=== PATIENT | male | born 1930 | race African-American/Black ===

== ENCOUNTER 2018-08-23 06:00 | Emergency (ER) | payer MEDICARE, OTHER ==
[~2018-08-23] VITALS: Ht 170.2 cm; Wt 89.0 kg
[~2018-08-23 06:00] MED LIST: ALLO300T2 PO; DUTA0.5C2 MT; FINA5TAB11 PO; METF-516 PO; MONT10TA24 PO; NATE120T PO; PRAV20TA57 PO; QUIN20TA30 PO; TAMS0.4C31 MT
[2018-08-23] MEDS ORDERED: HYDROCODONE/ACETAMINOPHEN 5/325MG TABLET PO ONE (06:45)
[2018-08-23 08:31] LABS: CLARITY URINE CLEAR (CLEAR); COLOR URINE YELLOW (YELLOW); KETONES URINE NEGATIVE (NEGATIVE); LEUKOCYTE ESTERASE URINE NEGATIVE (NEGATIVE); NITRITE URINE NEGATIVE (NEGATIVE); OCCULT BLOOD URINE TRACE (NEGATIVE); PH URINE 6.5 (4.5-8.0); PROTEIN URINE 1+ (NEGATIVE); SPECIFIC GRAVITY URINE 1.018 (1.005-1.030); UROBILINOGEN URINE 0.2 E.U./dL (0.2-1.0)
[2018-08-23 08:59] VITALS: BP 184/88
== END 2018-08-23 09:11 | disposition home or self-care (01) ==
LOC: ER 06:00
DX: K40.90 Unilateral inguinal hernia, without obstruction or gangrene, not specified as recurrent (principal); E11.9 Type 2 diabetes mellitus without complications; I10 Essential (primary) hypertension; Z98.890 Other specified postprocedural states; Z79.899 Other long term (current) drug therapy
CPT/HCPCS: 76857; 99284

== ENCOUNTER 2019-03-30 05:45 | Emergency (ER) | payer MEDICARE, OTHER ==
[~2019-03-30] VITALS: Ht 175.3 cm; Wt 82.0 kg
[2019-03-30 06:46] LABS: CHLORIDE 107 mEq/L (98-107)
[2019-03-30 06:53] LABS: BASOPHILS % 1.1 % (0.0-2.0); EOSINOPHILS % 1.6 % (0.0-5.0); HEMATOCRIT. 34.9 % (42.0-52.0); HEMOGLOBIN. 11.9 g/dL (14.0-18.0); LYMPHOCYTES % 31.4 % (20.0-50.0); MEAN CORPUSCULAR HEMOGLOBIN 31.1 pg (28.0-32.0); MEAN CORPUSCULAR VOLUME 91.4 fL (80.0-94.0); MEAN PLATELET VOLUME 9.6 fl (7.4-10.4); MONOCYTES % 8.9 % (2.0-8.0); PLATELET 139 x1000/uL (130-400); RED BLOOD CELL COUNT 3.82 mill/uL (4.7-6.1); RED CELL DISTRIBUTION WIDTH 14.7 % (11.6-14.6)
[2019-03-30 09:09] VITALS: BP 135/66
== END 2019-03-30 09:11 | disposition home or self-care (01) ==
LOC: ER 05:45
DX: R06.00 Dyspnea, unspecified (principal); M79.18 Myalgia, other site; R06.02 Shortness of breath; R07.89 Other chest pain; I10 Essential (primary) hypertension; E11.9 Type 2 diabetes mellitus without complications; N40.0 Benign prostatic hyperplasia without lower urinary tract symptoms; Z87.442 Personal history of urinary calculi; Z79.899 Other long term (current) drug therapy
CPT/HCPCS: 36415; 71045; 73030; 80053; 83880; 84484; 85025; 93005; 99284

== ENCOUNTER 2019-12-18 09:19 | Emergency (ER) | payer MEDICARE, OTHER ==
[~2019-12-18] VITALS: Ht 172.7 cm; Wt 83.9 kg
[~2019-12-18 09:19] MED LIST changes: -MONT10TA24 PO; +MONT10TA26 PO
[2019-12-18 09:52] LABS: BASOPHILS % 0.9 % (0.0-2.0); EOSINOPHILS % 2.6 % (0.0-5.0); HEMATOCRIT. 37.1 % (42.0-52.0); HEMOGLOBIN. 12.3 g/dL (14.0-18.0); LYMPHOCYTES % 26.1 % (20.0-50.0); MEAN CORPUSCULAR HEMOGLOBIN 30.1 pg (28.0-32.0); MEAN CORPUSCULAR VOLUME 90.6 fL (80.0-94.0); MONOCYTES % 9.8 % (2.0-8.0); NEUTROPHILS % 60.6 % (40.0-76.0); PLATELET 132 x1000/uL (130-400); RED CELL DISTRIBUTION WIDTH 15.3 % (11.6-14.6)
[2019-12-18 09:58] LABS: CHLORIDE 109 mEq/L (98-107)
[2019-12-18 10:05] LABS: INR 1.1; PROTHROMBIN TIME 11.4 sec (9.6-11.0)
[2019-12-18] MEDS ORDERED: LIDOCAINE HCL/EPINEPHRINE 1%-EPI 1:100,000 20 ML VIAL INFIL ONE (11:00)
[2019-12-18] MEDS ORDERED: TETANUS, DIPHTHERIA, PERTUSSIS VAC/PF 0.5ML (>7YR OLD) IM ONE (11:00)
[2019-12-18] MEDS ORDERED: LIDOCAINE 1%/EPI 1:100,000 10 ML VIAL IJ NR (11:15)
[2019-12-18 11:58] VITALS: BP 154/56
== END 2019-12-18 12:01 | disposition home or self-care (01) ==
LOC: ER 09:19
DX: S01.111A Laceration without foreign body of right eyelid and periocular area, initial encounter (principal); G93.89 Other specified disorders of brain; W01.190A Fall on same level from slipping, tripping and stumbling with subsequent striking against furniture, initial encounter; Y93.E9 Activity, other interior property and clothing maintenance; Y92.018 Other place in single-family (private) house as the place of occurrence of the external cause; I10 Essential (primary) hypertension; E11.9 Type 2 diabetes mellitus without complications; N40.0 Benign prostatic hyperplasia without lower urinary tract symptoms; Z79.899 Other long term (current) drug therapy; Z79.84 Long term (current) use of oral hypoglycemic drugs; Z23 Encounter for immunization
CPT/HCPCS: 12011; 36415; 70450; 72125; 80053; 85025; 85610; 90471; 90715; 93005; 99285; J3490

== ENCOUNTER 2020-11-04 15:35 | Inpatient (IN) | payer MEDICARE, OTHER ==
[~2020-11-04] VITALS: Ht 177.8 cm; Wt 97.1 kg
[~2020-11-04 15:35] MED LIST changes: -METF-516 PO; +METF-818 PO; -MONT10TA26 PO; +MONT10TA32 PO
[2020-11-04 18:22] LABS: CHLORIDE 107 mEq/L (98-107)
[2020-11-04 18:26] LABS: ETHANOL BLOOD < 10 mg/dL
[2020-11-04] MEDS ORDERED: CEFTRIAXONE 2 G PREMIX 50 ML IV ONE (18:45)
[2020-11-04 19:50] LABS: BASOPHILS % 0.3 % (0.0-2.0); EOSINOPHILS % 1.6 % (0.0-5.0); HEMATOCRIT. 36.8 % (42.0-52.0); HEMOGLOBIN. 12.7 g/dL (14.0-18.0); LYMPHOCYTES % 16.4 % (20.0-50.0); MEAN CORPUSCULAR HEMOGLOBIN 32.4 pg (28.0-32.0); MEAN CORPUSCULAR VOLUME 93.8 fL (80.0-94.0); MEAN PLATELET VOLUME 8.8 fl (7.4-10.4); MONOCYTES % 6.3 % (2.0-8.0); NEUTROPHILS % 75.4 % (40.0-76.0); PLATELET 95 x1000/uL (130-400); RED BLOOD CELL COUNT 3.92 mill/uL (4.7-6.1); RED CELL DISTRIBUTION WIDTH 19.6 % (11.6-14.6)
[2020-11-04 19:50] LABS: CLARITY URINE CLOUDY (CLEAR); COLOR URINE DARK YELLOW (YELLOW); KETONES URINE TRACE (NEGATIVE); LEUKOCYTE ESTERASE URINE TRACE (NEGATIVE); NITRITE URINE POSITIVE (NEGATIVE); OCCULT BLOOD URINE NEGATIVE (NEGATIVE); PROTEIN URINE 1+ (NEGATIVE); SPECIFIC GRAVITY URINE 1.015 (1.005-1.030)
[2020-11-04 20:07] LABS: *AMPHETAMINES SCREEN URINE NEGATIVE (NEGATIVE); *BARBITURATES SCREEN URINE NEGATIVE (NEGATIVE); *BENZODIAZEPINES SCREEN URINE NEGATIVE (NEGATIVE); *COCAINE SCREEN URINE NEGATIVE (NEGATIVE); CANNABINOID URINE SCREEN NEGATIVE (NEGATIVE)
[2020-11-04 20:08] LABS: METHADONE URINE SCREEN NEGATIVE (NEGATIVE); OPIATES URINE SCREEN NEGATIVE (NEGATIVE); PHENCYCLIDINE URINE SCREEN NEGATIVE (NEGATIVE)
[2020-11-04] MEDS ORDERED: ZOLPIDEM TARTRATE 5MG TABLET PO PRN (21:00)
[2020-11-04] MEDS: INSULIN LISPRO 100 UNITS/ML SUBCUT SCH (21:00)
[2020-11-04] MEDS ORDERED: SODIUM CHLORIDE 0.9% 1000ML BAG (SEPSIS BOLUS) IV ONE (21:00)
[2020-11-04] MEDS ORDERED: TRAMADOL 50MG TABLET PO PRN (21:00)
[2020-11-04] MEDS ORDERED: NITROGLYCERIN 0.4MG TABLET SL SL PRN (21:00)
[2020-11-04] MEDS ORDERED: ACETAMINOPHEN 325MG TABLET PO PRN ×2 (21:00)
[2020-11-04] MEDS ORDERED: LEVOFLOXACIN 500MG PREMIX 100 ML IV NR (21:00)
[2020-11-04] MEDS ORDERED: GUAIFENESIN 200MG/10ML SUGAR FREE UDC PO PRN (21:00)
[2020-11-04] MEDS ORDERED: CLONIDINE 0.1MG TABLET PO PRN (21:00)
[2020-11-04] MEDS ORDERED: DEXTROSE 50% WATER 50ML SYRINGE IV PRN (21:00)
[2020-11-04] MEDS ORDERED: DOCUSATE SODIUM 100MG CAPSULE PO PRN (21:00)
[2020-11-04] MEDS ORDERED: MAGNESIUM/ALUMINUM HYDROXIDE/SIMETHICONE 30ML UDC PO PRN (21:00)
[2020-11-04] MEDS ORDERED: IPRATROPIUM/ALBUTEROL 0.5-3(2.5)MG/3ML NEB NEB PRN (21:00)
[2020-11-04] MEDS ORDERED: ONDANSETRON HCL 4MG/2ML INJ IV PRN (21:00)
[2020-11-04] MEDS: BLOOD SUGAR DIAGNOSTIC STRIP TEST SCH (21:42)
[2020-11-04 21:43] LABS: T4 FREE 1.26 ng/dL (0.76-1.46)
[2020-11-04 21:55] LABS: FERRITIN 316 ng/mL (22-322)
[2020-11-04 22:50] LABS: VITAMIN B12 SERUM > 2000.0 pg/mL (211-911)
[2020-11-04] MEDS: FAMOTIDINE 20MG TABLET PO SCH (23:33)
[2020-11-04] MEDS: ASCORBIC ACID 500 MG TABLET PO SCH (23:33)
[2020-11-04] MEDS: METOPROLOL TARTRATE 25MG TABLET PO SCH (23:40)
[2020-11-05 00:10] LABS: CREATINE KINASE 28 IU/L (39-308)
[2020-11-05 00:11] LABS: CREATINE KINASE MB FRACTION < 1.0 ng/mL (0.5-3.6)
[2020-11-05] MEDS: ENOXAPARIN 30MG/0.3ML SYR SUBCUT SCH ×2 (02:24→21:00)
[2020-11-05 05:09] LABS: BASOPHILS % 0.4 % (0.0-2.0); HEMOGLOBIN. 12.5 g/dL (14.0-18.0); LYMPHOCYTES % 16.9 % (20.0-50.0); MEAN CORPUSCULAR HEMOGLOBIN 32.6 pg (28.0-32.0); MEAN CORPUSCULAR VOLUME 96.4 fL (80.0-94.0); MEAN PLATELET VOLUME 8.6 fl (7.4-10.4); MONOCYTES % 7.1 % (2.0-8.0); NEUTROPHILS % 74.6 % (40.0-76.0); PLATELET 81 x1000/uL (130-400); RED BLOOD CELL COUNT 3.84 mill/uL (4.7-6.1); RED CELL DISTRIBUTION WIDTH 19.9 % (11.6-14.6)
[2020-11-05 05:17] LABS: CHLORIDE 110 mEq/L (98-107)
[2020-11-05 05:23] LABS: PHOSPHORUS 2.6 mg/dL (2.5-4.9)
[2020-11-05 05:25] LABS: CREATINE KINASE 29 IU/L (39-308)
[2020-11-05 05:28] LABS: CREATINE KINASE MB FRACTION < 1.0 ng/mL (0.5-3.6)
[2020-11-05] MEDS: BLOOD SUGAR DIAGNOSTIC STRIP TEST SCH ×4 (06:44→21:01)
[2020-11-05] MEDS: INSULIN LISPRO 100 UNITS/ML SUBCUT SCH ×4 (07:30→21:00)
[2020-11-05] MEDS: ASCORBIC ACID 500 MG TABLET PO SCH ×2 (10:18→21:05)
[2020-11-05] MEDS: CHOLECALCIFEROL (D3) 1000 UNIT TABLET PO SCH (10:19)
[2020-11-05] MEDS: ZINC SULFATE 220 MG ( 50 ) CAPSULE PO SCH (10:19)
[2020-11-05] MEDS: ASPIRIN 325MG EC TABLET PO SCH (10:19)
[2020-11-05] MEDS: METOPROLOL TARTRATE 25MG TABLET PO SCH ×2 (10:20→21:06)
[2020-11-05] MEDS ORDERED: CEFTRIAXONE SODIUM 1 G/VIAL ONE (14:45)
[2020-11-05] MEDS: CEFTRIAXONE 1,000 MG in DEXTROSE 5% WATER 50 ML IV SCH (15:42)
[2020-11-05 20:00] VITALS: BP_SYST 138; BP_SYST 143; BP_DIAS 56; BP_DIAS 86
[2020-11-05] MEDS: FAMOTIDINE 20MG TABLET PO SCH (21:05)
[2020-11-05] MEDS: LEVOFLOXACIN 250MG PREMIX 50 ML IV SCH (22:21)
[2020-11-06] VITALS: BP 126/56
[2020-11-06 04:00] VITALS: BP 118/55
[2020-11-06] MEDS: BLOOD SUGAR DIAGNOSTIC STRIP TEST SCH ×4 (05:50→21:00)
[2020-11-06] MEDS: INSULIN LISPRO 100 UNITS/ML SUBCUT SCH ×4 (06:53→21:00)
[2020-11-06 08:00] VITALS: BP 117/62
[2020-11-06] MEDS ORDERED: DEXTROSE 50% WATER 50ML SYRINGE IV ONE (08:00)
[2020-11-06] MEDS: ZINC SULFATE 220 MG ( 50 ) CAPSULE PO SCH (09:15)
[2020-11-06] MEDS: ASCORBIC ACID 500 MG TABLET PO SCH ×3 (09:15→21:59)
[2020-11-06] MEDS: ASPIRIN 325MG EC TABLET PO SCH (09:15)
[2020-11-06] MEDS: METOPROLOL TARTRATE 25MG TABLET PO SCH ×3 (09:15→21:59)
[2020-11-06] MEDS: CHOLECALCIFEROL (D3) 1000 UNIT TABLET PO SCH (09:15)
[2020-11-06 12:00] VITALS: BP 129/63
[2020-11-06] MEDS: CEFTRIAXONE 1,000 MG in DEXTROSE 5% WATER 50 ML IV SCH (13:46)
[2020-11-06 16:00] VITALS: BP 134/55
[2020-11-06 20:00] VITALS: BP 126/70
[2020-11-06] MEDS: FAMOTIDINE 20MG TABLET PO SCH ×2 (21:00→22:21)
[2020-11-06] MEDS: ENOXAPARIN 30MG/0.3ML SYR SUBCUT SCH (21:59)
[2020-11-07] VITALS: BP 124/52
[2020-11-07] MEDS: LEVOFLOXACIN 250MG PREMIX 50 ML IV SCH ×2 (00:07→21:58)
[2020-11-07 04:00] VITALS: BP 146/74
[2020-11-07] MEDS: BLOOD SUGAR DIAGNOSTIC STRIP TEST SCH ×4 (06:40→21:59)
[2020-11-07] MEDS: INSULIN LISPRO 100 UNITS/ML SUBCUT SCH ×4 (07:10→21:00)
[2020-11-07 08:00] VITALS: BP 145/62
[2020-11-07] MEDS: ASCORBIC ACID 500 MG TABLET PO SCH ×2 (09:02→21:00)
[2020-11-07] MEDS: CHOLECALCIFEROL (D3) 1000 UNIT TABLET PO SCH (09:02)
[2020-11-07] MEDS: ZINC SULFATE 220 MG ( 50 ) CAPSULE PO SCH (09:02)
[2020-11-07] MEDS: ASPIRIN 325MG EC TABLET PO SCH (09:02)
[2020-11-07] MEDS: METOPROLOL TARTRATE 25MG TABLET PO SCH ×2 (09:04→21:00)
[2020-11-07] MEDS: DEXT 5%/0.9% NACL 1,000 ML IV SCH ×2 (10:40→21:58)
[2020-11-07 12:00] VITALS: BP 107/44
[2020-11-07] MEDS: CEFTRIAXONE 1,000 MG in DEXTROSE 5% WATER 50 ML IV SCH (13:48)
[2020-11-07 16:30] VITALS: BP 147/63
[2020-11-07 20:00] VITALS: BP 107/68
[2020-11-07] MEDS: FAMOTIDINE 20MG TABLET PO SCH (21:00)
[2020-11-07] MEDS: ENOXAPARIN 30MG/0.3ML SYR SUBCUT SCH (22:05)
[2020-11-08] VITALS: BP 125/60
[2020-11-08 04:00] VITALS: BP 137/43
[2020-11-08] MEDS: INSULIN LISPRO 100 UNITS/ML SUBCUT SCH ×4 (07:10→22:49)
[2020-11-08] MEDS: BLOOD SUGAR DIAGNOSTIC STRIP TEST SCH ×4 (07:58→21:00)
[2020-11-08 08:00] VITALS: BP 140/58
[2020-11-08] MEDS: CHOLECALCIFEROL (D3) 1000 UNIT TABLET PO SCH (09:00)
[2020-11-08] MEDS: ASPIRIN 325MG EC TABLET PO SCH (09:00)
[2020-11-08] MEDS: ZINC SULFATE 220 MG ( 50 ) CAPSULE PO SCH (09:00)
[2020-11-08] MEDS: ASCORBIC ACID 500 MG TABLET PO SCH ×2 (09:00→20:45)
[2020-11-08] MEDS: METOPROLOL TARTRATE 25MG TABLET PO SCH ×2 (09:00→20:46)
[2020-11-08] MEDS ORDERED: BISACODYL 10MG SUPP PR PRN (10:30)
[2020-11-08 12:00] VITALS: BP 151/71
[2020-11-08] MEDS: LACTULOSE 20G/30ML UDC PO SCH ×2 (13:01→20:45)
[2020-11-08 16:00] VITALS: BP 135/52
[2020-11-08] MEDS: DEXT 5%/0.9% NACL 1,000 ML IV SCH ×2 (16:15→17:49)
[2020-11-08] MEDS: CEFTRIAXONE 1,000 MG in DEXTROSE 5% WATER 50 ML IV SCH (17:48)
[2020-11-08 20:00] VITALS: BP 160/75
[2020-11-08] MEDS: ENOXAPARIN 30MG/0.3ML SYR SUBCUT SCH (20:46)
[2020-11-08] MEDS: FAMOTIDINE 20MG TABLET PO SCH (20:46)
[2020-11-08] MEDS: LEVOFLOXACIN 250MG PREMIX 50 ML IV SCH (22:49)
[2020-11-09] VITALS (7 sets, daily range): BP systolic 135–154; BP diastolic 64–78
[2020-11-09] MEDS: DEXT 5%/0.9% NACL 1,000 ML IV SCH ×3 (06:42→22:21)
[2020-11-09] MEDS: LACTULOSE 20G/30ML UDC PO SCH ×3 (06:42→22:20)
[2020-11-09] MEDS: BLOOD SUGAR DIAGNOSTIC STRIP TEST SCH ×4 (06:42→21:00)
[2020-11-09] MEDS: INSULIN LISPRO 100 UNITS/ML SUBCUT SCH ×4 (06:47→21:00)
[2020-11-09] MEDS: CHOLECALCIFEROL (D3) 1000 UNIT TABLET PO SCH (08:32)
[2020-11-09] MEDS: ASPIRIN 325MG EC TABLET PO SCH (08:32)
[2020-11-09] MEDS: ZINC SULFATE 220 MG ( 50 ) CAPSULE PO SCH (08:32)
[2020-11-09] MEDS: ASCORBIC ACID 500 MG TABLET PO SCH ×2 (08:32→22:19)
[2020-11-09] MEDS: METOPROLOL TARTRATE 25MG TABLET PO SCH ×2 (08:40→22:18)
[2020-11-09] MEDS: CEFTRIAXONE 1,000 MG in DEXTROSE 5% WATER 50 ML IV SCH (13:30)
[2020-11-09] MEDS: ENOXAPARIN 30MG/0.3ML SYR SUBCUT SCH (21:00)
[2020-11-09] MEDS: FAMOTIDINE 20MG TABLET PO SCH (22:19)
[2020-11-10] VITALS: BP 135/57
[2020-11-10 04:00] VITALS: BP 125/59
[2020-11-10] MEDS: LACTULOSE 20G/30ML UDC PO SCH ×3 (06:00→22:00)
[2020-11-10] MEDS: INSULIN LISPRO 100 UNITS/ML SUBCUT SCH ×4 (06:17→21:00)
[2020-11-10] MEDS: BLOOD SUGAR DIAGNOSTIC STRIP TEST SCH ×4 (06:17→21:00)
[2020-11-10] MEDS: DEXT 5%/0.9% NACL 1,000 ML IV SCH ×2 (06:17→18:03)
[2020-11-10 08:00] VITALS: BP 134/50
[2020-11-10] MEDS: ASPIRIN 325MG EC TABLET PO SCH (09:00)
[2020-11-10] MEDS: METOPROLOL TARTRATE 25MG TABLET PO SCH ×2 (09:22→23:02)
[2020-11-10] MEDS: CHOLECALCIFEROL (D3) 1000 UNIT TABLET PO SCH (09:22)
[2020-11-10] MEDS: ASCORBIC ACID 500 MG TABLET PO SCH ×2 (09:22→23:01)
[2020-11-10] MEDS: ZINC SULFATE 220 MG ( 50 ) CAPSULE PO SCH (09:22)
[2020-11-10] MEDS ORDERED: MEROPENEM 1,000 MG in SODIUM CHLORIDE 0.9% 100 ML IV SCH (10:15)
[2020-11-10 12:00] VITALS: BP 127/54
[2020-11-10] MEDS: MEROPENEM 1,000 MG in SODIUM CHLORIDE 0.9% 100 ML IV SCH (12:47)
[2020-11-10] MEDS ORDERED: METHYLPREDNISOLONE SOD SUCC 125 MG/2 ML VIAL IV SCH (14:00)
[2020-11-10 16:00] VITALS: BP 106/45
[2020-11-10 16:03] LABS: INR 1.9; PROTHROMBIN TIME 19.8 sec (9.6-11.0)
[2020-11-10 16:19] LABS: CARCINO EMBRYONIC ANTIGEN 1.8 ng/ml; PROSTRATE SPECIFIC AG TOTAL 2.73 ng/mL (0.0-4.0)
[2020-11-10] MEDS: METHYLPREDNISOLONE SOD SUCC 125 MG/2 ML VIAL IV SCH ×2 (16:53→23:08)
[2020-11-10 16:59] LABS: BASOPHILS % 0.5 % (0.0-2.0); EOSINOPHILS % 0.3 % (0.0-5.0); HEMOGLOBIN. 12.2 g/dL (14.0-18.0); LYMPHOCYTES % 16.1 % (20.0-50.0); MEAN CORPUSCULAR HEMOGLOBIN 32.8 pg (28.0-32.0); MEAN CORPUSCULAR VOLUME 94.3 fL (80.0-94.0); MONOCYTES % 3.6 % (2.0-8.0); NEUTROPHILS % 79.5 % (40.0-76.0); RED BLOOD CELL COUNT 3.71 mill/uL (4.7-6.1); RED CELL DISTRIBUTION WIDTH 20.2 % (11.6-14.6)
[2020-11-10 18:03] LABS: MEAN PLATELET VOLUME 9.2 fl (7.4-10.4); PLATELET 56 x1000/uL (130-400)
[2020-11-10 20:00] VITALS: BP 129/33
[2020-11-10] MEDS: ENOXAPARIN 30MG/0.3ML SYR SUBCUT SCH (21:00)
[2020-11-10] MEDS: FAMOTIDINE 20MG TABLET PO SCH (23:01)
[2020-11-11] VITALS: BP 139/55
[2020-11-11 04:00] VITALS: BP 126/48
[2020-11-11] MEDS: LACTULOSE 20G/30ML UDC PO SCH ×2 (06:00→14:00)
[2020-11-11] MEDS: BLOOD SUGAR DIAGNOSTIC STRIP TEST SCH ×4 (06:40→21:00)
[2020-11-11] MEDS: INSULIN LISPRO 100 UNITS/ML SUBCUT SCH ×4 (07:10→21:00)
[2020-11-11] MEDS: MEROPENEM 1,000 MG in SODIUM CHLORIDE 0.9% 100 ML IV SCH ×2 (07:41→11:59)
[2020-11-11] MEDS: DEXT 5%/0.9% NACL 1,000 ML IV SCH ×2 (07:41→14:00)
[2020-11-11] MEDS: METHYLPREDNISOLONE SOD SUCC 125 MG/2 ML VIAL IV SCH ×2 (07:42→14:00)
[2020-11-11 08:00] VITALS: BP 138/81
[2020-11-11] MEDS: ASCORBIC ACID 500 MG TABLET PO SCH (11:25)
[2020-11-11] MEDS: METOPROLOL TARTRATE 25MG TABLET PO SCH (11:25)
[2020-11-11] MEDS: CHOLECALCIFEROL (D3) 1000 UNIT TABLET PO SCH (11:25)
[2020-11-11] MEDS: ZINC SULFATE 220 MG ( 50 ) CAPSULE PO SCH (11:25)
[2020-11-11 12:00] VITALS: BP 128/62
[2020-11-11 16:00] VITALS: BP 154/73
[2020-11-11 20:00] VITALS: BP 110/62
[2020-11-11] MEDS: ENOXAPARIN 30MG/0.3ML SYR SUBCUT SCH (21:00)
[2020-11-12] VITALS: BP 145/58
[2020-11-12] MEDS: LACTULOSE 20G/30ML UDC PO SCH ×4 (00:24→22:33)
[2020-11-12] MEDS: FAMOTIDINE 20MG TABLET PO SCH ×2 (00:24→22:33)
[2020-11-12] MEDS: MEROPENEM 1,000 MG in SODIUM CHLORIDE 0.9% 100 ML IV SCH ×2 (00:24→12:03)
[2020-11-12] MEDS: METOPROLOL TARTRATE 25MG TABLET PO SCH ×3 (00:24→21:00)
[2020-11-12] MEDS: ASCORBIC ACID 500 MG TABLET PO SCH ×3 (00:25→21:00)
[2020-11-12] MEDS: METHYLPREDNISOLONE SOD SUCC 125 MG/2 ML VIAL IV SCH ×4 (00:25→22:33)
[2020-11-12] MEDS: DEXT 5%/0.9% NACL 1,000 ML IV SCH ×3 (00:39→21:30)
[2020-11-12 04:00] VITALS: BP 125/58
[2020-11-12] MEDS: BLOOD SUGAR DIAGNOSTIC STRIP TEST SCH ×4 (05:45→21:30)
[2020-11-12] MEDS: INSULIN LISPRO 100 UNITS/ML SUBCUT SCH ×4 (05:45→21:00)
[2020-11-12 08:00] VITALS: BP 146/68
[2020-11-12 08:29] LABS: HEMATOCRIT 36.6 % (42.0-52.0); HEMOGLOBIN 12.1 g/dL (14.0-18.0); MEAN CORPUSCULAR HEMOGLOBIN 31.8 pg (28.0-32.0); MEAN CORPUSCULAR VOLUME 95.9 fL (80.0-94.0); RED BLOOD CELL COUNT 3.82 mill/uL (4.7-6.1)
[2020-11-12] MEDS: CHOLECALCIFEROL (D3) 1000 UNIT TABLET PO SCH (09:15)
[2020-11-12] MEDS: ZINC SULFATE 220 MG ( 50 ) CAPSULE PO SCH (09:16)
[2020-11-12] MEDS ORDERED: POTASSIUM CHLORIDE 20MEQ TABLET SR PO NR (15:45)
[2020-11-12] MEDS ORDERED: POTASSIUM CHLORIDE INJ 40 MEQ in DEXT 5% WATER 250 ML IV NR (17:00)
[2020-11-12 20:00] VITALS: BP 117/81
[2020-11-13] VITALS (8 sets, daily range): BP systolic 94–166; BP diastolic 53–82
[2020-11-13] MEDS: MEROPENEM 1,000 MG in SODIUM CHLORIDE 0.9% 100 ML IV SCH ×3 (01:06→23:11)
[2020-11-13] MEDS: BLOOD SUGAR DIAGNOSTIC STRIP TEST SCH ×4 (05:59→20:50)
[2020-11-13] MEDS: DEXT 5%/0.9% NACL 1,000 ML IV SCH ×3 (06:00→19:40)
[2020-11-13] MEDS: LACTULOSE 20G/30ML UDC PO SCH ×3 (06:00→22:00)
[2020-11-13] MEDS: INSULIN LISPRO 100 UNITS/ML SUBCUT SCH ×4 (06:12→20:50)
[2020-11-13] MEDS: METHYLPREDNISOLONE SOD SUCC 125 MG/2 ML VIAL IV SCH ×3 (06:13→22:56)
[2020-11-13 07:49] LABS: PROTHROMBIN TIME 20.4 sec (9.6-11.0)
[2020-11-13 07:51] LABS: HEMATOCRIT. 38.9 % (42.0-52.0); HEMOGLOBIN. 13.2 g/dL (14.0-18.0); MEAN CORPUSCULAR HEMOGLOBIN 32.1 pg (28.0-32.0); MEAN CORPUSCULAR VOLUME 94.2 fL (80.0-94.0); MEAN PLATELET VOLUME 9.8 fl (7.4-10.4); RED BLOOD CELL COUNT 4.12 mill/uL (4.7-6.1); RED CELL DISTRIBUTION WIDTH 20.6 % (11.6-14.6)
[2020-11-13 07:58] LABS: CHLORIDE 122 mEq/L (98-107)
[2020-11-13 08:00] LABS: PLATELET 40 x1000/uL (130-400)
[2020-11-13] MEDS: CHOLECALCIFEROL (D3) 1000 UNIT TABLET PO SCH ×2 (08:49→09:00)
[2020-11-13] MEDS: ZINC SULFATE 220 MG ( 50 ) CAPSULE PO SCH ×2 (08:49→09:00)
[2020-11-13] MEDS: ASCORBIC ACID 500 MG TABLET PO SCH ×3 (08:49→20:49)
[2020-11-13] MEDS: METOPROLOL TARTRATE 25MG TABLET PO SCH ×3 (08:50→20:49)
[2020-11-13] MEDS: POTASSIUM CHLORIDE 20MEQ/PACKET PO NR ×2 (09:30→10:29)
[2020-11-13] MEDS ORDERED: KCL 20MEQ/100ML PREMIX 100 ML IV NR (13:00)
[2020-11-13 14:36] LABS: PLATELET 50 x1000/uL (130-400)
[2020-11-13 16:56] LABS: PLATELET ESTIMATE MARKEDLY DECREASED
[2020-11-13] MEDS: FAMOTIDINE 20MG TABLET PO SCH (20:49)
[2020-11-14] VITALS (7 sets, daily range): BP systolic 92–150; BP diastolic 45–87
[2020-11-14] MEDS: METHYLPREDNISOLONE SOD SUCC 125 MG/2 ML VIAL IV SCH ×3 (05:13→21:48)
[2020-11-14] MEDS: LACTULOSE 20G/30ML UDC PO SCH ×3 (06:00→21:59)
[2020-11-14] MEDS: BLOOD SUGAR DIAGNOSTIC STRIP TEST SCH ×4 (06:03→21:49)
[2020-11-14] MEDS: INSULIN LISPRO 100 UNITS/ML SUBCUT SCH ×4 (06:03→21:49)
[2020-11-14] MEDS: DEXT 5%/0.9% NACL 1,000 ML IV SCH ×2 (06:36→19:20)
[2020-11-14] MEDS: ZINC SULFATE 220 MG ( 50 ) CAPSULE PO SCH (09:00)
[2020-11-14] MEDS: METOPROLOL TARTRATE 25MG TABLET PO SCH ×2 (09:00→21:59)
[2020-11-14] MEDS: ASCORBIC ACID 500 MG TABLET PO SCH ×2 (09:00→21:00)
[2020-11-14] MEDS: CHOLECALCIFEROL (D3) 1000 UNIT TABLET PO SCH (09:00)
[2020-11-14] MEDS: MEROPENEM 1,000 MG in SODIUM CHLORIDE 0.9% 100 ML IV SCH ×2 (12:24→23:00)
[2020-11-14] MEDS: FAMOTIDINE 20MG TABLET PO SCH (21:00)
[2020-11-15] VITALS: BP 120/72
[2020-11-15 04:00] VITALS: BP 124/76
[2020-11-15] MEDS: LACTULOSE 20G/30ML UDC PO SCH ×3 (05:37→22:00)
[2020-11-15] MEDS: METHYLPREDNISOLONE SOD SUCC 125 MG/2 ML VIAL IV SCH ×3 (05:37→22:19)
[2020-11-15] MEDS: BLOOD SUGAR DIAGNOSTIC STRIP TEST SCH ×4 (05:54→21:00)
[2020-11-15] MEDS: DEXT 5%/0.9% NACL 1,000 ML IV SCH ×2 (05:55→16:37)
[2020-11-15] MEDS: INSULIN LISPRO 100 UNITS/ML SUBCUT SCH ×4 (06:07→22:03)
[2020-11-15 07:47] LABS: HEMATOCRIT. 37.8 % (42.0-52.0); HEMOGLOBIN. 12.7 g/dL (14.0-18.0); MEAN CORPUSCULAR HEMOGLOBIN 32.2 pg (28.0-32.0); MEAN CORPUSCULAR VOLUME 95.9 fL (80.0-94.0); RED BLOOD CELL COUNT 3.94 mill/uL (4.7-6.1); RED CELL DISTRIBUTION WIDTH 20.6 % (11.6-14.6)
[2020-11-15 07:55] LABS: INR 2.1; PROTHROMBIN TIME 21.5 sec (9.6-11.0)
[2020-11-15 08:00] VITALS: BP 137/58
[2020-11-15 08:03] LABS: PLATELET 28 x1000/uL (130-400)
[2020-11-15 08:15] LABS: CHLORIDE 126 mEq/L (98-107)
[2020-11-15 08:49] LABS: NUCLEATED RED BLOOD CELLS 1 /100 WBC; PLATELET ESTIMATE MARKEDLY DECREASED
[2020-11-15] MEDS: ASCORBIC ACID 500 MG TABLET PO SCH ×3 (09:00→21:00)
[2020-11-15] MEDS: CHOLECALCIFEROL (D3) 1000 UNIT TABLET PO SCH ×2 (09:00→09:33)
[2020-11-15] MEDS: ZINC SULFATE 220 MG ( 50 ) CAPSULE PO SCH ×2 (09:00→09:33)
[2020-11-15] MEDS: METOPROLOL TARTRATE 25MG TABLET PO SCH ×2 (09:33→21:00)
[2020-11-15] MEDS: MEROPENEM 1,000 MG in SODIUM CHLORIDE 0.9% 100 ML IV SCH (11:30)
[2020-11-15 12:00] VITALS: BP 136/64
[2020-11-15 16:00] VITALS: BP 129/83
[2020-11-15 20:00] VITALS: BP 154/72
[2020-11-15] MEDS: FAMOTIDINE 20MG TABLET PO SCH (21:00)
[2020-11-16] VITALS: BP 144/72
[2020-11-16] MEDS: DEXT 5%/0.9% NACL 1,000 ML IV SCH ×2 (03:52→15:03)
[2020-11-16 04:00] VITALS: BP 132/82
[2020-11-16] MEDS: LACTULOSE 20G/30ML UDC PO SCH ×3 (06:00→20:31)
[2020-11-16] MEDS: METHYLPREDNISOLONE SOD SUCC 125 MG/2 ML VIAL IV SCH ×3 (06:04→21:11)
[2020-11-16] MEDS: BLOOD SUGAR DIAGNOSTIC STRIP TEST SCH ×4 (06:04→20:29)
[2020-11-16] MEDS: INSULIN LISPRO 100 UNITS/ML SUBCUT SCH ×4 (06:04→21:11)
[2020-11-16 07:32] LABS: HEPATITIS B SURFACE ANTIGEN NEGATIVE
[2020-11-16 08:00] VITALS: BP 123/60
[2020-11-16] MEDS: METOPROLOL TARTRATE 25MG TABLET PO SCH ×2 (08:55→20:30)
[2020-11-16] MEDS: ZINC SULFATE 220 MG ( 50 ) CAPSULE PO SCH (08:56)
[2020-11-16] MEDS: ASCORBIC ACID 500 MG TABLET PO SCH ×2 (08:56→20:30)
[2020-11-16] MEDS: CHOLECALCIFEROL (D3) 1000 UNIT TABLET PO SCH (08:56)
[2020-11-16 12:00] VITALS: BP 127/66
[2020-11-16 12:49] LABS: HEMATOCRIT. 35.6 % (42.0-52.0); HEMOGLOBIN. 12.3 g/dL (14.0-18.0); MEAN CORPUSCULAR HEMOGLOBIN 32.4 pg (28.0-32.0); MEAN CORPUSCULAR VOLUME 93.7 fL (80.0-94.0); RED BLOOD CELL COUNT 3.79 mill/uL (4.7-6.1); RED CELL DISTRIBUTION WIDTH 20.3 % (11.6-14.6)
[2020-11-16] MEDS: MORPHINE SULFATE 2 MG/ML CPJ (NOT FOR IM USE) IV PRN (12:57)
[2020-11-16 13:16] LABS: INR 2.2; PROTHROMBIN TIME 22.2 sec (9.6-11.0)
[2020-11-16 14:03] LABS: PLATELET ESTIMATE MARKEDLY DECREASED
[2020-11-16 14:06] LABS: MEAN PLATELET VOLUME 9.4 fl (7.4-10.4); PLATELET 17 x1000/uL (130-400)
[2020-11-16 16:00] VITALS: BP 138/54
[2020-11-16 20:00] VITALS: BP 153/60
[2020-11-16] MEDS: FAMOTIDINE 20MG TABLET PO SCH (20:30)
[2020-11-17] VITALS: BP 128/62
[2020-11-17] MEDS: DEXT 5%/0.9% NACL 1,000 ML IV SCH ×3 (00:21→20:29)
[2020-11-17 04:00] VITALS: BP 158/65
[2020-11-17] MEDS: LACTULOSE 20G/30ML UDC PO SCH ×3 (06:00→22:00)
[2020-11-17] MEDS: INSULIN LISPRO 100 UNITS/ML SUBCUT SCH ×5 (06:10→21:00)
[2020-11-17] MEDS: BLOOD SUGAR DIAGNOSTIC STRIP TEST SCH ×4 (06:10→21:59)
[2020-11-17] MEDS: METHYLPREDNISOLONE SOD SUCC 125 MG/2 ML VIAL IV SCH ×3 (06:20→22:10)
[2020-11-17 08:00] VITALS: BP 139/76
[2020-11-17] MEDS: ZINC SULFATE 220 MG ( 50 ) CAPSULE PO SCH (08:41)
[2020-11-17] MEDS: CHOLECALCIFEROL (D3) 1000 UNIT TABLET PO SCH (08:41)
[2020-11-17] MEDS: ASCORBIC ACID 500 MG TABLET PO SCH ×2 (08:41→21:00)
[2020-11-17] MEDS: METOPROLOL TARTRATE 25MG TABLET PO SCH ×2 (08:41→21:00)
[2020-11-17 10:11] LABS: KAPPA/LAMBDA RATIO 0.47 (0.26-1.65)
[2020-11-17 12:00] VITALS: BP 107/55
[2020-11-17 16:00] VITALS: BP 144/59
[2020-11-17] MEDS: MORPHINE SULFATE 2 MG/ML CPJ (NOT FOR IM USE) IV PRN (17:36)
[2020-11-17 20:00] VITALS: BP 141/60
[2020-11-17] MEDS: FAMOTIDINE 20MG TABLET PO SCH (21:00)
[2020-11-18] VITALS: BP 126/60
[2020-11-18 04:00] VITALS: BP 150/66
[2020-11-18] MEDS: LACTULOSE 20G/30ML UDC PO SCH ×3 (06:00→20:59)
[2020-11-18] MEDS: DEXT 5%/0.9% NACL 1,000 ML IV SCH ×3 (06:15→23:25)
[2020-11-18] MEDS: METHYLPREDNISOLONE SOD SUCC 125 MG/2 ML VIAL IV SCH ×3 (06:49→21:00)
[2020-11-18] MEDS: BLOOD SUGAR DIAGNOSTIC STRIP TEST SCH ×4 (06:50→20:59)
[2020-11-18] MEDS: INSULIN LISPRO 100 UNITS/ML SUBCUT SCH ×4 (06:51→20:59)
[2020-11-18 08:00] VITALS: BP 117/61
[2020-11-18] MEDS: CHOLECALCIFEROL (D3) 1000 UNIT TABLET PO SCH ×2 (09:59→10:26)
[2020-11-18] MEDS: METOPROLOL TARTRATE 25MG TABLET PO SCH ×2 (10:01→10:27)
[2020-11-18] MEDS: ASCORBIC ACID 500 MG TABLET PO SCH ×2 (10:01→10:27)
[2020-11-18] MEDS: ZINC SULFATE 220 MG ( 50 ) CAPSULE PO SCH ×2 (10:01→10:27)
[2020-11-18 12:00] VITALS: BP 122/57
[2020-11-18] MEDS ORDERED: NALOXONE HCL 0.4MG/ML VIAL IV PRN (14:00)
[2020-11-18 16:00] VITALS: BP 138/65
[2020-11-18 20:00] VITALS: BP 136/54
[2020-11-18] MEDS: FAMOTIDINE 20MG TABLET PO SCH (20:59)
[2020-11-19] VITALS: BP 130/59
[2020-11-19 04:00] VITALS: BP 119/57
[2020-11-19] MEDS: LACTULOSE 20G/30ML UDC PO SCH ×3 (04:57→21:53)
[2020-11-19] MEDS: METHYLPREDNISOLONE SOD SUCC 125 MG/2 ML VIAL IV SCH ×3 (04:58→21:53)
[2020-11-19] MEDS: BLOOD SUGAR DIAGNOSTIC STRIP TEST SCH ×4 (06:16→21:43)
[2020-11-19] MEDS: INSULIN LISPRO 100 UNITS/ML SUBCUT SCH ×4 (06:22→21:00)
[2020-11-19 08:00] VITALS: BP 142/67
[2020-11-19] MEDS: ASCORBIC ACID 500 MG TABLET PO SCH ×3 (08:29→21:46)
[2020-11-19] MEDS: METOPROLOL TARTRATE 25MG TABLET PO SCH ×3 (08:29→21:45)
[2020-11-19] MEDS: DEXT 5%/0.9% NACL 1,000 ML IV SCH ×2 (11:23→22:15)
[2020-11-19 12:00] VITALS: BP 130/65
[2020-11-19 16:00] VITALS: BP 138/64
[2020-11-19] MEDS: FAMOTIDINE 20MG TABLET PO SCH ×2 (21:00→21:46)
[2020-11-20] VITALS: BP 134/58
[2020-11-20] MEDS: MORPHINE SULFATE 2 MG/ML CPJ (NOT FOR IM USE) IV PRN ×2 (03:31→22:15)
[2020-11-20 04:00] VITALS: BP 138/66
[2020-11-20] MEDS: LACTULOSE 20G/30ML UDC PO SCH ×3 (06:00→22:00)
[2020-11-20] MEDS: METHYLPREDNISOLONE SOD SUCC 125 MG/2 ML VIAL IV SCH ×3 (06:46→22:15)
[2020-11-20] MEDS: INSULIN LISPRO 100 UNITS/ML SUBCUT SCH ×4 (06:51→21:00)
[2020-11-20] MEDS: BLOOD SUGAR DIAGNOSTIC STRIP TEST SCH ×4 (06:51→21:00)
[2020-11-20 08:00] VITALS: BP 133/54
[2020-11-20] MEDS: CHOLECALCIFEROL (D3) 1000 UNIT TABLET PO SCH (08:07)
[2020-11-20] MEDS: ASCORBIC ACID 500 MG TABLET PO SCH ×2 (08:07→21:00)
[2020-11-20] MEDS: ZINC SULFATE 220 MG ( 50 ) CAPSULE PO SCH (08:07)
[2020-11-20] MEDS: METOPROLOL TARTRATE 25MG TABLET PO SCH ×2 (08:07→21:00)
[2020-11-20] MEDS: DEXT 5%/0.9% NACL 1,000 ML IV SCH ×2 (08:40→17:21)
[2020-11-20 11:57] VITALS: BP 142/61
[2020-11-20 16:00] VITALS: BP 127/60
[2020-11-20 20:00] VITALS: BP 107/52
[2020-11-20] MEDS: FAMOTIDINE 20MG TABLET PO SCH (21:00)
[2020-11-21] VITALS: BP 121/47
[2020-11-21 04:00] VITALS: BP 111/43
[2020-11-21] MEDS: LACTULOSE 20G/30ML UDC PO SCH ×3 (06:00→22:00)
[2020-11-21] MEDS: METHYLPREDNISOLONE SOD SUCC 125 MG/2 ML VIAL IV SCH ×3 (06:08→21:48)
[2020-11-21] MEDS: INSULIN LISPRO 100 UNITS/ML SUBCUT SCH ×4 (06:15→21:00)
[2020-11-21] MEDS: BLOOD SUGAR DIAGNOSTIC STRIP TEST SCH ×4 (06:15→21:00)
[2020-11-21 08:00] VITALS: BP 106/43
[2020-11-21] MEDS: CHOLECALCIFEROL (D3) 1000 UNIT TABLET PO SCH (09:00)
[2020-11-21] MEDS: METOPROLOL TARTRATE 25MG TABLET PO SCH ×2 (09:00→21:47)
[2020-11-21] MEDS: ZINC SULFATE 220 MG ( 50 ) CAPSULE PO SCH (09:00)
[2020-11-21] MEDS: ASCORBIC ACID 500 MG TABLET PO SCH ×2 (09:00→21:46)
[2020-11-21] MEDS: MORPHINE SULFATE 2 MG/ML CPJ (NOT FOR IM USE) IV PRN ×2 (10:32→21:50)
[2020-11-21 12:00] VITALS: BP 109/51
[2020-11-21] MEDS: DEXT 5%/0.9% NACL 1,000 ML IV SCH (14:11)
[2020-11-21 16:00] VITALS: BP 120/28
[2020-11-21 20:00] VITALS: BP 113/44
[2020-11-21] MEDS: FAMOTIDINE 20MG TABLET PO SCH (21:46)
[2020-11-22] VITALS: BP 116/45
[2020-11-22 04:00] VITALS: BP 110/50
[2020-11-22] MEDS: MORPHINE SULFATE 2 MG/ML CPJ (NOT FOR IM USE) IV PRN (04:51)
[2020-11-22] MEDS: LACTULOSE 20G/30ML UDC PO SCH ×2 (06:00→14:00)
[2020-11-22] MEDS: METHYLPREDNISOLONE SOD SUCC 125 MG/2 ML VIAL IV SCH ×2 (07:06→15:11)
[2020-11-22] MEDS: INSULIN LISPRO 100 UNITS/ML SUBCUT SCH ×2 (07:10→11:34)
[2020-11-22] MEDS: BLOOD SUGAR DIAGNOSTIC STRIP TEST SCH ×2 (07:12→11:34)
[2020-11-22 08:00] VITALS: BP 124/53
[2020-11-22] MEDS: ASCORBIC ACID 500 MG TABLET PO SCH (09:00)
[2020-11-22] MEDS: ZINC SULFATE 220 MG ( 50 ) CAPSULE PO SCH (09:00)
[2020-11-22] MEDS: METOPROLOL TARTRATE 25MG TABLET PO SCH (09:00)
[2020-11-22] MEDS: CHOLECALCIFEROL (D3) 1000 UNIT TABLET PO SCH (09:00)
[2020-11-22] MEDS: DEXT 5%/0.9% NACL 1,000 ML IV SCH ×2 (10:45→10:46)
[2020-11-22 12:00] VITALS: BP 122/50
[2020-11-22 12:26] VITALS: BP 123/72
[2021-11-04] MEDS ORDERED: CEFTRIAXONE 1 G PREMIX 50 ML IV SCH (22:00)
== END 2020-11-22 16:35 | disposition hospice, inpatient (51) | DRG 871 ==
LOC: ER 15:35 → SUPCPDRO 20:51 → MICUSO 22:05 → 7EST 11-05 16:46
PROVIDERS: ADMIT Internal Medicine; ATTEND Internal Medicine
DX: A41.9 Sepsis, unspecified organism (principal); E43 Unspecified severe protein-calorie malnutrition; G92 Toxic encephalopathy; D65 Disseminated intravascular coagulation [defibrination syndrome]; G82.50 Quadriplegia, unspecified; N39.0 Urinary tract infection, site not specified; I13.0 Hypertensive heart and chronic kidney disease with heart failure and stage 1 through stage 4 chronic kidney disease, or unspecified chronic kidney disease; R18.8 Other ascites; R47.01 Aphasia; N17.9 Acute kidney failure, unspecified; C78.7 Secondary malignant neoplasm of liver and intrahepatic bile duct; Z66 Do not resuscitate; D64.9 Anemia, unspecified; E11.22 Type 2 diabetes mellitus with diabetic chronic kidney disease; D47.2 Monoclonal gammopathy; J44.9 Chronic obstructive pulmonary disease, unspecified; K59.00 Constipation, unspecified; E66.9 Obesity, unspecified; K75.9 Inflammatory liver disease, unspecified; E78.5 Hyperlipidemia, unspecified; E87.6 Hypokalemia; K76.0 Fatty (change of) liver, not elsewhere classified; R13.10 Dysphagia, unspecified; N18.9 Chronic kidney disease, unspecified; F03.90 Unspecified dementia, unspecified severity, without behavioral disturbance, psychotic disturbance, mood disturbance, and anxiety; I50.9 Heart failure, unspecified; N40.0 Benign prostatic hyperplasia without lower urinary tract symptoms; R53.81 Other malaise; C61 Malignant neoplasm of prostate; R65.20 Severe sepsis without septic shock; T14.8XXA Other injury of unspecified body region, initial encounter; X58.XXXA Exposure to other specified factors, initial encounter; Y93.89 Activity, other specified; Y92.89 Other specified places as the place of occurrence of the external cause; Y99.8 Other external cause status; Z79.4 Long term (current) use of insulin; Z78.1 Physical restraint status; Z82.49 Family history of ischemic heart disease and other diseases of the circulatory system; Z68.30 Body mass index [BMI] 30.0-30.9, adult; Z79.899 Other long term (current) drug therapy
CPT/HCPCS: 36415; 71045; 74018; 76770; 80048; 80053; 80061; 80076; 80305; 80320; 81003; 82105; 82140; 82378; 82550; 82553; 82607; 82728; 82746; 82784; 82962; 83036; 83540; 83550; 83605; 83615; 83735; 83880; 83883; 84100; 84145; 84153; 84439; 84443; 84484; 85025; 85027; 85379; 85651; 86140; 86301; 86334; 86705; 86709; 86803; 86850; 86900; 87340; 92523; 92610; 93005; 93306; 93970; 97116; 97162; 97530; 99285; C1893; J0696; J1650; J1815; J1956; J2185; J2270; J2930; J3480; J7040; J7042; J7050; J7060; A4315; G0103; G0480